=== PATIENT | female | born 1995 | race Caucasian/White ===

== ENCOUNTER 2019-04-05 16:08 | Inpatient (IN) | payer MEDICAID ==
[2019-04-05] MEDS ORDERED: MISOPROSTOL 200 MCG TAB PR (19:00)
[2019-04-05] MEDS ORDERED: CARBOPROST 250 MCG INJ IM (19:00)
[2019-04-05] MEDS ORDERED: BUTORPHANOL 2 MG INJ IV (19:00)
[2019-04-05] MEDS ORDERED: LIDOCAINE 1% (MPF) 30 ML INJ INJ (19:00)
[2019-04-05] MEDS ORDERED: METHYLERGONOVINE 0.2 MG INJ IM (19:00)
[2019-04-05] MEDS ORDERED: OXYTOCIN 30 UNITS/LR 500 ML IV (19:00)
[2019-04-05] MEDS: LACTATED RINGER'S 1,000 ML IV (20:19)
[2019-04-05 21:17] LABS: ADD MAN DIFF? NO
[2019-04-05 21:19] LABS: WHITE BLOOD COUNT 8.3 10^3/ul (4.8-10.8)
[2019-04-05 21:19] LABS: BASOPHILS % 0.5 % (0.0-2.0); EOSINOPHILS # 0.1 10^3/ul (0.0-0.5); EOSINOPHILS % 0.7 % (0.0-7.0); HEMATOCRIT 30.8 % (37.0-47.0); HEMOGLOBIN 10.1 g/dl (12.0-16.0); LYMPHOCYTES # 3.1 10^3/ul (0.8-2.9); LYMPHOCYTES % 37.3 % (15.0-51.0); MEAN CORPUSCULAR HEMOGLOBIN 29.4 pg (29.0-33.0); MEAN CORPUSCULAR HGB CONC 32.8 g/dl (32.0-37.0); MEAN CORPUSCULAR VOLUME 89.5 fl (82.0-101.0); MEAN PLATELET VOLUME 10.6 fl (7.4-10.4); MONOCYTE # 0.6 10^3/ul (0.3-0.9); MONOCYTES % 7.1 % (0.0-11.0); NEUTROPHIL # 4.5 10^3/ul (1.6-7.5); NEUTROPHILS % 53.7 % (39.0-77.0); PLATELET COUNT 182 10^3/UL (140-415); RED BLOOD COUNT 3.44 10^6/ul (4.20-5.40); RED CELL DISTRIBUTION WIDTH 13.5 % (11.5-14.5)
[2019-04-05 21:39] LABS: INR 0.94; PROTIME 12.7 Sec (11.9-14.9)
[2019-04-05 21:40] LABS: PARTIAL THROMBOPLASTIN TIME 26.8 Sec (23.0-35.0)
[2019-04-05] MEDS: MISOPROSTOL 50 MCG CAPSULE PO (22:15)
[2019-04-06] MEDS: LACTATED RINGER'S 1,000 ML IV ×2 (03:06→11:16)
[2019-04-06] MEDS: OXYTOCIN 30 UNITS/LR 500 ML IV ×4 (03:07→19:17)
[2019-04-06] MEDS: BUTORPHANOL 2 MG INJ IV (13:49)
[2019-04-06] MEDS: MINERAL OIL LIGHT 10 ML VIAL TOP (16:24)
[2019-04-06] MEDS ORDERED: IBUPROFEN 600 MG TAB (17:11)
[2019-04-06] MEDS: IBUPROFEN 600 MG TAB PO ×2 (17:24→19:00)
[2019-04-06] MEDS ORDERED: OXYTOCIN 30 UNITS/LR 500 ML IV (19:00)
[2019-04-06] MEDS ORDERED: WITCH HAZEL/GLYCERIN PAD PR (19:00)
[2019-04-06] MEDS ORDERED: CARBOPROST 250 MCG INJ IM (19:00)
[2019-04-06] MEDS ORDERED: MISOPROSTOL 200 MCG TAB PR (19:00)
[2019-04-06] MEDS ORDERED: ACETAMINOPHEN 325 MG TAB PO ×2 (19:00)
[2019-04-06] MEDS ORDERED: ZOLPIDEM 5 MG TAB PO (19:00)
[2019-04-06] MEDS ORDERED: NACL 0.9% 3 ML SYG IV (19:00)
[2019-04-06] MEDS ORDERED: LANOLIN 7 GM TUBE TOP (19:00)
[2019-04-06] MEDS ORDERED: SENNA/DOCUSATE NA (8.6MG/50MG) TAB PO (19:00)
[2019-04-06] MEDS ORDERED: ONDANSETRON 4 MG INJ IV (19:00)
[2019-04-06] MEDS ORDERED: DIPHENHYDRAMINE 25 MG CAP PO (19:00)
[2019-04-06] MEDS: PRENATAL VITAMIN PO (19:00)
[2019-04-06] MEDS: WITCH HAZEL/GLYCERIN PAD PR (21:30)
[2019-04-06] MEDS: SENNA/DOCUSATE NA (8.6MG/50MG) TAB PO (21:30)
[2019-04-06 22:52] LABS: RAPID PLASMA REAGIN NONREACTIVE (NR)
[2019-04-07] MEDS: IBUPROFEN 600 MG TAB PO ×4 (00:25→17:48)
[2019-04-07 09:02] LABS: ADD MAN DIFF? NO
[2019-04-07 09:05] LABS: BASOPHILS % 0.2 % (0.0-2.0); EOSINOPHILS # 0.1 10^3/ul (0.0-0.5); EOSINOPHILS % 0.5 % (0.0-7.0); HEMATOCRIT 29.6 % (37.0-47.0); HEMOGLOBIN 9.4 g/dl (12.0-16.0); LYMPHOCYTES % 28.5 % (15.0-51.0); MEAN CORPUSCULAR HEMOGLOBIN 28.6 pg (29.0-33.0); MEAN CORPUSCULAR HGB CONC 31.8 g/dl (32.0-37.0); MEAN PLATELET VOLUME 10.7 fl (7.4-10.4); MONOCYTE # 0.6 10^3/ul (0.3-0.9); MONOCYTES % 5.9 % (0.0-11.0); NEUTROPHIL # 6.8 10^3/ul (1.6-7.5); NEUTROPHILS % 64.3 % (39.0-77.0); PLATELET COUNT 184 10^3/UL (140-415); RED BLOOD COUNT 3.29 10^6/ul (4.20-5.40); RED CELL DISTRIBUTION WIDTH 13.5 % (11.5-14.5)
[2019-04-07 09:05] LABS: WHITE BLOOD COUNT 10.6 10^3/ul (4.8-10.8)
[2019-04-07] MEDS: PRENATAL VITAMIN PO (09:12)
[2019-04-07] MEDS: SENNA/DOCUSATE NA (8.6MG/50MG) TAB PO ×2 (09:12→22:14)
[2019-04-07] MEDS: LANOLIN HPA 1 PKT TOP (09:12)
[2019-04-08] MEDS: IBUPROFEN 600 MG TAB PO ×3 (00:21→12:09)
[2019-04-08] MEDS: PRENATAL VITAMIN PO (08:07)
[2019-04-08] MEDS: SENNA/DOCUSATE NA (8.6MG/50MG) TAB PO ×2 (08:07→08:12)
[2019-04-08] MEDS: VARICELLA VACCINE LIVE/PF 1,350 UNIT/0.5 ML ML SC* (09:00)
[2019-04-08] MEDS: DIPHTH/TET/ACEL PERTUSS (ADULT) 0.5 ML VIAL IM* (09:00)
[2019-04-08] MEDS: MEASLES,MUMPS,RUBELLA VACCINE INJ SC* (12:12)
[2019-04-08] MEDS: WITCH HAZEL/GLYCERIN PAD PR (14:26)
== END 2019-04-08 14:39 | disposition home or self-care (01) | DRG 807 ==
LOC: OBT 16:08 → PP1 04-06 19:33 → L-D 16:11 → OBT 18:50 → L-D 18:50
PROVIDERS: Obstetrics & Gynecology
PROC: 10E0XZZ Delivery of Products of Conception, External Approach (ICD-10-PCS; principal; 2019-04-06)
DX: O48.0 Post-term pregnancy (principal); Z37.0 Single live birth; Z3A.40 40 weeks gestation of pregnancy; Z23 Encounter for immunization
CPT/HCPCS: 76815; 76818; 85025; 85610; 85730; 86592; 86850; 86900; 86901; 90716